=== PATIENT | female | born 1950 | race Caucasian/White ===

== ENCOUNTER 2017-08-07 13:13 | Day surgery (SDC) | payer MEDICARE, BC ==
[2017-08-07] MEDS ORDERED: IOHEXOL 300MG/ML 30 ML BTL (14:50)
[2017-08-07] MEDS ORDERED: PROPOFOL 100 ML (14:58)
[2017-08-07] MEDS ORDERED: FENTAnyl 50 MCG/ML VIAL (14:59)
[2017-08-07] MEDS ORDERED: DEXAMETHASONE 4 MG/ML 1 ML INJ (15:02)
[2017-08-07] MEDS ORDERED: ONDANSETRON 4 MG INJ (15:05)
[2017-08-07] MEDS ORDERED: LIDOCAINE 2% (SDV) 5 ML INJ (15:42)
[2017-08-07] MEDS ORDERED: DIPHENHYDRAMINE 50 MG INJ IV (16:00)
[2017-08-07] MEDS ORDERED: OXYCODONE/ACETAMINOPHEN (5/325) TAB PO (16:00)
[2017-08-07] MEDS ORDERED: LABETALOL HCL 20MG INJ IV (16:00)
[2017-08-07] MEDS ORDERED: hydrALAzine 20 MG INJ IV (16:00)
[2017-08-07] MEDS ORDERED: MEPERIDINE 25 MG INJ IV (16:00)
[2017-08-07] MEDS ORDERED: ONDANSETRON 4 MG INJ IV (16:00)
[2017-08-07] MEDS ORDERED: FENTAnyl 50 MCG/ML VIAL IV ×3 (16:00)
[2017-08-07] MEDS ORDERED: EPHEDrine SULFATE 50 MG/5 ML SYG IV (16:00)
[2017-08-07] MEDS ORDERED: ALBUTEROL 0.083% (NEB) 2.5 MG/3 ML AMP HHN (16:00)
[2017-08-07] MEDS: KETOROLAC 30 MG INJ IV (16:19)
[2017-08-07] MEDS: OXYCODONE/ACETAMINOPHEN (5/325) TAB PO ×2 (16:20→17:07)
== END 2017-08-07 18:35 | disposition home or self-care (01) ==
LOC: SDS 13:13
DX: K80.50 Calculus of bile duct without cholangitis or cholecystitis without obstruction (principal); E03.9 Hypothyroidism, unspecified; I10 Essential (primary) hypertension; J45.909 Unspecified asthma, uncomplicated
CPT/HCPCS: 43264; 74330